=== PATIENT | female | born 1980 | race Caucasian/White ===

== ENCOUNTER 2017-07-08 18:35 | Emergency (ER) | payer BC ==
[2017-07-08] MEDS ORDERED: Acetaminophen 325 MG Tab PO ONE (21:17)
--- NOTE | 2017-07-08 23:16 | ER ---
DATE SEEN: 07/08/2017 CHIEF COMPLAINT: Bleeding. HISTORY OF PRESENT ILLNESS: A 37-year-old female complaining of vaginal bleeding, painless, started today, passing blood clots. She believes she is about 6 weeks' based on 2 positive urine tests at home. REVIEW OF SYSTEMS: She has no abdominal pain, pelvic pain, nausea, or vomiting. Denies any urinary symptoms. PAST MEDICAL HISTORY: Blood type A-negative. PAST OBSTETRIC HISTORY: Last and only was 18 years ago. PHYSICAL EXAMINATION: GENERAL: She is well hydrated. VITAL SINGS: Her blood pressure is normal. Her pulse is 91. She is afebrile. ABDOMEN: Soft with no tenderness to palpation. MENTAL STATUS: Alert. LABORATORY DATA: HCG level was 2373. Normal hemoglobin, but white cell count was 13.6. IMPRESSION: Miscarriage, threatened. PLAN: I did an ultrasound that showed a very tiny gestational sac, abnormal looking, possibly in the process of miscarriage. I gave her RhoGAM. Discharged home. Follow up in the office on Monday. TIME SEEN: 2000 hours. /[id number] 2022 [id number] YESSENIA/MORGAN
--- NOTE | 2017-07-10 12:02 | US ---
INDICATION: Vaginal bleeding. OB ULTRASOUND LIMITED: Multiple ultrasonic images were obtained with transabdominal probe. The bladder is empty. The uterus is visualized with what appears to be an intrauterine gestation. The gestation appears abnormal in shape. No heart motion is noted. Need endovaginal probe ultrasound for better visualization. There is a possible pole. The uterus is anteverted. No definite uterine mass is seen. No definite adnexal mass lesion or free fluid collection was identified. However, a small amount of posterior cul-de-sac fluid is difficult to exclude with this appearance. IMPRESSION: Early gestation. No definite viable fetus visualized with transabdominal probe. Need endovaginal probe ultrasound for better visualization. INDICATION: Vaginal bleeding, unsure of LMP, need better visualization of the endometrium than was possible with the transabdominal probe. OB TRANSVAGINAL ULTRASOUND: Utilizing transvaginal probe, multiple ultrasonic images were obtained 07/08/2017, and revealed an abnormal shaped intrauterine gestation with what appears to be a pole and no heart motion present. There may be some blood clotting in the subchorionic area, suggesting a bleed. This is not a definite finding, however. Close follow-up is recommended. A small amount of free fluid is noted in the posterior cul-de-sac area. Prominent vasculature is noted. The right ovary measured 2.2 x 3.4 x 1.8 cm. The left ovary measured 3.1 x 2.2 x 1.3 cm with follicles present and possibly a corpus luteum cyst at the right ovary and several follicles present at the left ovary. No adnexal mass lesions were identified. Wrens rump length was compatible with 6 weeks 1 day gestational age. The patient is unsure of LMP. Questioning 6 weeks gestation. The crown rump length would be compatible with that gestational age. VIVIANE by ultrasound would be 03/02/2018. IMPRESSION: Intrauterine gestation approximately 6 weeks 1 day gestational age. No heart motion identified, suggesting demise. The gestational sac is abnormal in shape, which would also be compatible with demise. Close follow-up recommended. MTDD
== END 2017-07-08 21:36 | disposition home or self-care (01) ==
LOC: FB.ED 18:35
DX: O20.0 Threatened abortion (principal)
CPT/HCPCS: 36415; 76815; 76817; 84702; 85025; 86900; 86901; 99284; A9270; J2790

== ENCOUNTER 2023-01-18 22:54 | Emergency (ER) | payer BC, OTHER ==
[2023-01-18] MEDS ORDERED: Lidocaine 2% 20 ML MDV INFILT ONE (22:55)
[2023-01-18] MEDS ORDERED: Diphtheria,Pertussis(Acell),Tetanus Vaccine 0.5 ML Syringe IM ONE (23:24)
== END 2023-01-19 00:07 | disposition home or self-care (01) ==
LOC: FB.ED 22:54
DX: S61.412A Laceration without foreign body of left hand, initial encounter (principal); Z23 Encounter for immunization; W26.8XXA Contact with other sharp object(s), not elsewhere classified, initial encounter
CPT/HCPCS: 12002; 90471; 90715; 99282-25